=== PATIENT | female | born 1980 | race Caucasian/White ===

== ENCOUNTER 2018-09-30 08:55 | Outpatient (CLI) | payer OTHER | END 2018-09-30 08:56 | disposition home or self-care (01) | LOC: CTENTCT 08:55 | PROVIDERS: ATTEND Specialist | DX: J32.9 Chronic sinusitis, unspecified (principal) | CPT/HCPCS: 70486 ==

== ENCOUNTER 2018-11-07 09:43 | Day surgery (SDC) | payer OTHER ==
[2018-11-06 15:49] VITALS: BMI 20.5
[2018-11-07] MEDS ORDERED: Bacitracin Zinc Ointment 30 gm TUBE ONE (10:36)
[2018-11-07] MEDS ORDERED: Lidocaine 1% w/Epinephrine 1:100K 20 ML VIAL ONE (10:36)
[2018-11-07] MEDS ORDERED: Oxymetazoline HCl 0.05% ( 15 ML ) ONE ×2 (10:36→10:42)
[2018-11-07] MEDS ORDERED: EPINEPHrine 1 MG/ML AMP ONE (10:36)
[2018-11-07] MEDS ORDERED: Midazolam HCl 2 mg/2 ml Vial ONE (10:56)
[2018-11-07] MEDS ORDERED: Lidocaine 4% Topical Sol 50 ML BOT ONE (10:56)
[2018-11-07] MEDS ORDERED: Fentanyl 250 MCG/5 ML VIAL ONE (10:56)
[2018-11-07 11:08] LABS: BHCG - Serum Negative (NEGATIVE); Pregs Control Background? CLEAR/WHITE (CLR/WHITE); Pregs Control Bar Appear? YES (CONTROL BAR)
[2018-11-07] MEDS ORDERED: Ciprofloxacin 0.2% Otic 1 DROP CON ONE (11:29)
[2018-11-07] MEDS ORDERED: diphenhydrAMINE 50 MG/ML VIAL ONE (14:09)
[2018-11-07] MEDS ORDERED: Promethazine HCl 25 MG/ML VIAL ONE (14:30)
[2018-11-07] MEDS ORDERED: ePHEDrine 50 MG/ML VIAL ONE (15:42)
[2018-11-07] MEDS ORDERED: PROPOFOL 200 MG/20 ML VIAL ONE (15:42)
[2018-11-07] MEDS ORDERED: Lidocaine 1% PF 5 ML VIAL ONE (15:42)
[2018-11-07] MEDS ORDERED: Ondansetron PF 4 MG/2 ML Vial ONE (15:42)
[2018-11-07] MEDS ORDERED: Rocuronium Bromide 10 MG/ML (10ML VIAL) ONE (15:42)
--- NOTE | 2018-11-10 11:24 | OP ---
DATE OF PROCEDURE: 11/07/2018 PREOPERATIVE DIAGNOSES: Chronic rhinosinusitis, septal deviation, turbinate hypertrophy, eustachian tube dysfunction and external nasal valve collapse. POSTOPERATIVE DIAGNOSES: Chronic rhinosinusitis, septal deviation, turbinate hypertrophy, and external nasal valve collapse. PROCEDURES PERFORMED: Bilateral balloon sinuplasty of bilateral frontal sinuses, bilateral maxillary sinuses and bilateral sphenoid sinuses, septoplasty, submucosal resection of inferior turbinates, right PE tube placement, and reconstruction of external nasal valves. CONSENT: Procedure, benefits, and risks including the risk of bleeding, infection, injury, anesthesia, allergic reaction, cerebrospinal fluid leak necessitating revision of repair and alternatives reviewed with the patient and family expressed understanding of the information. The consent form was signed and witnessed and a paper copy of the consent form is available for review in the paper chart. INDICATIONS: The patient is a female patient, presenting to clinic with chronic rhinosinusitis, eustachian tube dysfunction and recurrent facial pain and pressure from sinusitis and nasal obstruction from deviated septum and external nasal valve and turbinate hypertrophy. She was brought to the operative room now for operative intervention. ASSISTANTS: None. FINDINGS: Severely deviated septum with a left septal spur and right septal deviation and narrowing ostiomeatal complex and nasal cavity bilaterally. Right retracted TM with mild scarring on the tympanic membrane. DESCRIPTION OF OPERATION: The patient was brought to the operating room and laid supine on the operating table. General anesthesia endotracheal anesthesia was administered. The bed was then placed toward Anesthesia and the operative microscope was brought in and the right ear was examined and the previous small ear tube was removed as it was clogged and some slight retraction and scarring on the eardrum was noticed. A small myringotomy was made and a T-tube was inserted and noted in good place. Antibiotic drops were infiltrated into the ear. A cotton ball was placed and the head of the bed was then turned 90 degrees. Next the septum was infiltrated bilaterally with 1% lidocaine with 1:100,000 epinephrine with 6 Afrin-soaked cottonoids placed bilaterally, 3 on each side. The patient was then prepped and draped in usual fashion. Next, the balloon sinuplasty was started on the left side and the orientation of the balloon was in the frontal sinus curvature. A 0 degree endoscope was then inserted into the left nasal cavity and examined the sinus and seems that the septum was obstructed to both ostiomeatal complexes bilaterally. The middle turbinate was identified as well as the uncinate and ethmoid bulla and the balloon was then navigated into the left frontal sinus with illumination showing that the balloon was into the left frontal sinus and then the balloon was then inflated showing dilation of the left frontal sinus outflow tract. The same procedure was performed on the right side. Next, the balloon was then changed to the sphenoid orientation and the left sphenoid os was identified by finding the left choana and septum and following it superiorly until left sphenoid ostia was identified and inserted into the sphenoid os and then the balloon was dilated, holding for 1 minute and then deflated. The same procedure was performed on the right side. Next, the balloon was put in the maxillary sinus formation. The uncinate process was identified on the left side and the balloon was used to retract uncinate process gently and find the maxillary sinus with the illumination, illuminating the maxillary sinus. The balloon was then advanced and inflated and held for 1 minute and then the same procedure was performed on the right side with minimal bleeding. After balloon dilation was completed, attention was turned to the septoplasty procedure. At this point, a [place] incision was made on the left side, followed by elevation of the mucoperichondrial flaps. The bony cartilaginous junction was then disarticulated and then elevated on both sides. There was a deviated portion of the cartilage, a small incision was used to remove that deviated cartilage with double-action scissors and Diego forceps. Next, the spur was identified and the mucoperichondrial flap was noted to be intact on both sides without perforation and so the left septal spur was removed with Diego. After this procedure was performed, the 0-degree endoscope was inserted bilaterally and noted that the septum was straight and that the deviation had been corrected. A 4-0 chromic suture on a Rosalio needle was used to make a mattress suture replacing both mucoperichondrial flaps and reapproximating them and a 5-0 chromic suture was used to close the [place] incision. Next, the bilateral inferior turbinate reductions were then performed. A stab incision was made with the oscillating turbinate debrider and a pocket was developed to remove the erectile tissue from inside the inferior turbinate starting on the left side and then on the right side as well. After this was performed, both inferior turbinates were then lateralized using a Smith elevator and then a suction Bovie cautery was then used to seal the incisions on the inferior aspect of the turbinates bilaterally. Next, attention was directed to the external nasal valve. The external area of collapse was identified and then the nasal ala was retracted and an implant was used to insert underneath the cartilage on the left side and on top of the bone and after insertion, the nasal valve was noted to be stiffer and have less collapse to palpation and the same nasal valve reconstruction was performed on the right side. Next, the nasal cavities were suctioned and irrigated bilaterally and found to have no bleeding. Afrin-soaked pledgets were placed bilaterally. The patient was then turned back to anesthesia for emergence and then the Afrin pledgets were removed. ESTIMATED BLOOD LOSS: 30 mL. DRAINS: No drains were taken. SPECIMENS: No specimens were taken. COMPLICATIONS: There were no complications and the patient was turned back to anesthesia for emergence. Job ID: [id number]
== END 2018-11-07 15:45 | disposition home or self-care (01) ==
LOC: SDC 09:43
PROVIDERS: ATTEND Student in an Organized Health Care Education/Training Program
PROC: 09QM8ZZ Repair Nasal Septum, Via Natural or Artificial Opening Endoscopic (ICD-10-PCS; principal; 2018-11-07)
PROC: 09TL8ZZ Resection of Nasal Turbinate, Via Natural or Artificial Opening Endoscopic (ICD-10-PCS; principal; 2018-11-07)
PROC: 09QR8ZZ Repair Left Maxillary Sinus, Via Natural or Artificial Opening Endoscopic (ICD-10-PCS; principal; 2018-11-07)
PROC: 09QW8ZZ Repair Right Sphenoid Sinus, Via Natural or Artificial Opening Endoscopic (ICD-10-PCS; principal; 2018-11-07)
PROC: 09QS8ZZ Repair Right Frontal Sinus, Via Natural or Artificial Opening Endoscopic (ICD-10-PCS; principal; 2018-11-07)
PROC: 099580Z Drainage of Right Middle Ear with Drainage Device, Via Natural or Artificial Opening Endoscopic (ICD-10-PCS; principal; 2018-11-07)
PROC: 09QX8ZZ Repair Left Sphenoid Sinus, Via Natural or Artificial Opening Endoscopic (ICD-10-PCS; principal; 2018-11-07)
PROC: 09QT8ZZ Repair Left Frontal Sinus, Via Natural or Artificial Opening Endoscopic (ICD-10-PCS; principal; 2018-11-07)
PROC: 09CM8ZZ Extirpation of Matter from Nasal Septum, Via Natural or Artificial Opening Endoscopic (ICD-10-PCS; principal; 2018-11-07)
PROC: 09QQ8ZZ Repair Right Maxillary Sinus, Via Natural or Artificial Opening Endoscopic (ICD-10-PCS; principal; 2018-11-07)
DX: J32.9 Chronic sinusitis, unspecified (principal); J34.2 Deviated nasal septum; J34.3 Hypertrophy of nasal turbinates; M95.0 Acquired deformity of nose; H69.80 Other specified disorders of Eustachian tube, unspecified ear; Z79.899 Other long term (current) drug therapy; Z88.5 Allergy status to narcotic agent
CPT/HCPCS: 36415; 84703; 85014; J0131; J0171; J1200; J2001; J2250; J2405; J2550; J2704; J3010; J3490